=== PATIENT | male | born 1955 | race Caucasian/White ===

== ENCOUNTER 2020-02-07 09:10 | Outpatient (REF) | payer MEDICARE, SELFPAY ==
[2020-02-07 11:24] LABS: MANUAL DIFF FLAG NO
[2020-02-07 11:32] LABS: Glucose Urine UA NEG (NEG); Leukocyte Esterase Urine NEG (NEG); Nitrite Urine NEG (NEG); PH 5.5 (5.0-8.0); Specific Gravity - Urine 1.025 (1.005-1.025); Urine Blood NEG (NEG); Urine Ketones NEG (NEG); Urine Protein NEG (NEG-TRACE)
[2020-02-07 11:33] LABS: Appearance Urine CLEAR; Color Urine YELLOW
[2020-02-07 11:34] LABS: Estimated Average Glucose 103 mg/dL; Hemoglobin A1c % 5.2 %
[2020-02-07 11:52] LABS: Basophils Absolute Auto 0.1 X10*3/uL (0.0-0.2); Basophils Percent Auto 0.5 % (0-2); Creatinine Urine 62.06 mg/dL; Eosinophils Absolute Auto 0.1 X10*3/uL (0.0-0.4); Hematocrit 45.9 % (42-52); Hemoglobin 15.5 g/dl (14.0-18.0); Imm Gran Abs Auto 0.02 X10*3/uL (0.00-0.03); Imm Gran Pct Auto 0.2 % (0.0-0.4); Lymphocytes Absolute Auto 2.6 X10*3/uL (1.2-4.9); Lymphocytes Percent Auto 27.7 % (20-40); Mean Corpuscular HGB Conc 33.8 g/dl (31.0-36.0); Mean Corpuscular Hemoglobin 32.2 pg (27.0-33.0); Mean Corpuscular Volume 95.2 fL (80-98); Mean Platelet Volume 10.8 fL (9.4-12.4); Microalbum/Creatinine Ratio Ur 20.9 ug/mg cr; Monocytes Absolute Auto 0.7 X10*3/uL (0.1-1.2); Monocytes Percent Auto 7.9 % (2-11); Neutrophils Absolute Auto 5.9 X10*3/uL (2.0-8.3); Neutrophils Percent Auto 62.7 % (45-73); Platelet Count 263 X10*3/uL (160-400); Red Blood Count 4.82 X10*6/uL (4.60-5.80); Red Cell Distribution Width 12.8 % (11.0-16.0); White Blood Count 9.4 X10*3/uL (4.8-10.8)
[2020-02-07 12:21] LABS: Alanine Aminotransferase 22 U/L (0-40); Albumin Level 4.4 g/dL (3.5-5.0); Alkaline Phosphatase 70 U/L (39-117); Anion Gap 14 (12-20); Aspartate Amino Transferase 20 U/L (5-37); Bilirubin Total 0.8 mg/dL (0.0-1.0); Blood Urea Nitrogen 13 mg/dL (9-16); Calcium 9.6 mg/dL (8.4-10.2); Carbon Dioxide 26 mmol/L (22-29); Chloride 104 mmol/L (96-108); Cholesterol 229 mg/dL; Estimated Glomerular Filt Rate > 60; Glucose Fasting 92 mg/dL (60-99); HDL Cholesterol 83 mg/dL; LDL Cholesterol Calculated 131 mg/dl; Potassium 4.3 mmol/l (3.3-5.1); Sodium 140 mmol/L (135-145); Total Protein 7.2 g/dL (6.5-8.0); Triglycerides 78 mg/dL
[2020-02-07 12:52] LABS: Prostate Specific Antigen 5.54 ng/mL (<0.05-4.0)
== END 2020-02-07 09:11 | disposition home or self-care (01) ==
LOC: HO.HMGCLDS 09:10
PROVIDERS: PCP Internal Medicine; Visit Provider Internal Medicine
DX: E78.00 Pure hypercholesterolemia, unspecified (principal); R73.09 Other abnormal glucose; R97.20 Elevated prostate specific antigen [PSA]
CPT/HCPCS: 36415; 80053; 80061; 81003; 82043; 83036; 84153; 85025

== ENCOUNTER 2020-10-19 10:21 | Outpatient (REF) | payer MEDICARE, SELFPAY ==
[2020-10-19 10:50] LABS: Blood Urea Nitrogen 6 mg/dL (9-16); Estimated Glomerular Filt Rate > 60
== END 2020-10-19 10:22 | disposition home or self-care (01) ==
LOC: HO.LNP 10:21
PROVIDERS: Visit Provider Internal Medicine
DX: Z01.812 Encounter for preprocedural laboratory examination (principal)
CPT/HCPCS: 82565; 84520

== ENCOUNTER 2021-04-04 10:28 | Outpatient (REF) | payer MEDICARE, SELFPAY ==
[2021-04-04 10:33] LABS: MANUAL DIFF FLAG NO
[2021-04-04 11:00] LABS: Appearance Urine CLEAR; Basophils Absolute Auto 0.1 X10*3/uL (0.0-0.2); Basophils Percent Auto 0.6 % (0-2); Color Urine STRAW; Eosinophils Absolute Auto 0.1 X10*3/uL (0.0-0.4); Eosinophils Percent Auto 0.7 % (0-4); Glucose Urine UA NEG (NEG); Imm Gran Abs Auto 0.01 X10*3/uL (0.00-0.03); Imm Gran Pct Auto 0.1 % (0.0-0.4); Leukocyte Esterase Urine NEG (NEG); Lymphocytes Absolute Auto 2.3 X10*3/uL (1.2-4.9); Lymphocytes Percent Auto 27.1 % (20-40); Mean Corpuscular Hemoglobin 31.7 pg (27.0-33.0); Mean Corpuscular Volume 93.3 fL (80.0-98.0); Mean Platelet Volume 10.9 fL (9.4-12.4); Monocytes Absolute Auto 0.6 X10*3/uL (0.1-1.2); Monocytes Percent Auto 7.6 % (2-11); Neutrophils Absolute Auto 5.3 x10*3/uL (2.0-8.3); Neutrophils Percent Auto 63.9 % (45-73); Nitrite Urine NEG (NEG); PH 5.5 (5.0-8.0); Platelet Count 289 X10*3/uL (160-400); Red Blood Count 5.04 X10*6/uL (4.60-5.80); Red Cell Distribution Width 13.4 % (11.0-16.0); Urine Blood NEG (NEG); Urine Ketones NEG (NEG); Urine Protein NEG (NEG-TRACE); White Blood Count 8.3 X10*3/uL (4.8-10.8)
[2021-04-04 11:07] LABS: Estimated Average Glucose 105 mg/dL; Hemoglobin A1c % 5.3 %
[2021-04-04 11:16] LABS: Alanine Aminotransferase 24 U/L (0-40); Albumin Level 4.2 g/dL (3.5-5.0); Alkaline Phosphatase 68 U/L (39-117); Anion Gap 13 (12-20); Aspartate Amino Transferase 19 U/L (5-37); Bilirubin Total 0.6 mg/dL (0.0-1.0); Blood Urea Nitrogen 7 mg/dL (9-16); Carbon Dioxide 26 mmol/L (22-29); Chloride 104 mmol/L (96-108); Cholesterol 211 mg/dL; Estimated Glomerular Filt Rate > 60; Glucose Fasting 102 mg/dL (60-99); HDL Cholesterol 74 mg/dL; LDL Cholesterol Calculated 124 mg/dl; Potassium 4.6 mmol/L (3.3-5.1); Sodium 138 mmol/L (135-145); Total Protein 7.3 g/dL (6.5-8.0); Triglycerides 68 mg/dL
[2021-04-04 11:41] LABS: Creatinine Urine 51.39 mg/dL; Microalbum/Creatinine Ratio Ur 17.5 ug/mg cr; PSA,Total (Free>4and<10) 7.24 ng/mL (0.00-4.00)
[2021-04-04 12:58] LABS: Reflex LDLD? No
[2021-04-05 12:21] LABS: Free Prostate Spec Ag 1.2 ng/mL; Percent Free Prostate Spec Ag 19 % (calc) (>25); Prostate Specific Ag Total 6.4 ng/mL (< OR = 4.0)
== END 2021-04-04 10:29 | disposition home or self-care (01) ==
LOC: HO.LNP 10:28
PROVIDERS: Visit Provider Internal Medicine
DX: Z00.00 Encounter for general adult medical examination without abnormal findings (principal); R73.09 Other abnormal glucose; E78.00 Pure hypercholesterolemia, unspecified; R97.20 Elevated prostate specific antigen [PSA]
CPT/HCPCS: 80053; 80061; 81003; 82043; 83036; 84153; 84154; 85025

== ENCOUNTER 2022-04-07 10:55 | Outpatient (REF) | payer MEDICARE, SELFPAY ==
[2022-04-07 10:59] LABS: MANUAL DIFF FLAG NO
[2022-04-07 11:16] LABS: Basophils Absolute Auto 0.1 X10*3/uL (0.0-0.2); Basophils Percent Auto 0.8 % (0-2); Eosinophils Absolute Auto 0.1 X10*3/uL (0.0-0.4); Eosinophils Percent Auto 1.4 % (0-4); Hematocrit 51.8 % (42.0-52.0); Imm Gran Abs Auto 0.02 X10*3/uL (0.00-0.03); Imm Gran Pct Auto 0.2 % (0.0-0.4); Lymphocytes Absolute Auto 2.7 X10*3/uL (1.2-4.9); Mean Corpuscular HGB Conc 32.8 g/dl (31.0-36.0); Mean Corpuscular Hemoglobin 30.6 pg (27.0-33.0); Mean Corpuscular Volume 93.3 fL (80.0-98.0); Mean Platelet Volume 10.6 fL (9.4-12.4); Monocytes Absolute Auto 0.8 X10*3/uL (0.1-1.2); Monocytes Percent Auto 9.6 % (2-11); Neutrophils Absolute Auto 4.8 x10*3/uL (2.0-8.3); Platelet Count 285 X10*3/uL (160-400); Red Blood Count 5.55 X10*6/uL (4.60-5.80); Red Cell Distribution Width 13.4 % (11.0-16.0); White Blood Count 8.6 X10*3/uL (4.8-10.8)
[2022-04-07 11:31] LABS: Estimated Average Glucose 114 mg/dL; Hemoglobin A1c % 5.6 %
[2022-04-07 11:34] LABS: Alanine Aminotransferase 27 U/L (0-40); Albumin Level 4.4 g/dL (3.5-5.0); Alkaline Phosphatase 82 U/L (39-117); Anion Gap 15 (12-20); Aspartate Amino Transferase 22 U/L (5-37); Bilirubin Total 0.9 mg/dL (0.0-1.0); Blood Urea Nitrogen 10 mg/dL (9-16); Calcium 10.2 mg/dL (8.4-10.2); Carbon Dioxide 26 mmol/L (22-29); Chloride 102 mmol/L (96-108); Cholesterol 218 mg/dL; Estimated Glomerular Filt Rate > 60; Glucose Fasting 106 mg/dL (60-99); HDL Cholesterol 72 mg/dL; LDL Cholesterol Calculated 127 mg/dl; Potassium 5.1 mmol/L (3.3-5.1); Sodium 138 mmol/L (135-145); Total Protein 7.6 g/dL (6.5-8.0); Triglycerides 96 mg/dL
[2022-04-07 12:04] LABS: PSA,Total (Free>4and<10) 7.05 ng/mL (0.00-4.00)
[2022-04-08 09:59] LABS: Free Prostate Spec Ag 1.1 ng/mL; Percent Free Prostate Spec Ag 17 % (calc) (>25); Prostate Specific Ag Total 6.3 ng/mL (< OR = 4.0)
== END 2022-04-07 10:56 | disposition home or self-care (01) ==
LOC: HO.LNP 10:55
PROVIDERS: Visit Provider Internal Medicine
DX: Z00.00 Encounter for general adult medical examination without abnormal findings (principal); Z12.5 Encounter for screening for malignant neoplasm of prostate; R73.03 Prediabetes; E78.00 Pure hypercholesterolemia, unspecified; R97.20 Elevated prostate specific antigen [PSA]
CPT/HCPCS: 80053; 80061; 83036; 84153; 84154; 85025

== ENCOUNTER 2022-09-05 10:50 | Outpatient (REF) | payer MEDICARE, SELFPAY ==
[2022-09-05 11:06] LABS: Estimated Average Glucose 111 mg/dL; Hemoglobin A1c % 5.5 %
[2022-09-05 11:33] LABS: Alanine Aminotransferase 19 U/L (0-40); Albumin Level 3.9 g/dL (3.5-5.0); Alkaline Phosphatase 98 U/L (39-117); Aspartate Amino Transferase 19 U/L (5-37); Bilirubin Direct 0.2 mg/dL (0.0-0.5); Bilirubin Total 0.6 mg/dL (0.0-1.0); Cholesterol 128 mg/dL; Glucose Fasting 116 mg/dL (60-99); HDL Cholesterol 59 mg/dL; LDL Cholesterol Calculated 58 mg/dl; Triglycerides 56 mg/dL
[2022-09-05 12:42] LABS: Reflex LDLD? No
== END 2022-09-05 10:51 | disposition home or self-care (01) ==
LOC: HO.LNP 10:50
PROVIDERS: Visit Provider Internal Medicine
DX: E78.00 Pure hypercholesterolemia, unspecified (principal); R73.03 Prediabetes
CPT/HCPCS: 80061; 80076; 82947; 83036

== ENCOUNTER 2023-04-20 11:08 | Outpatient (REF) | payer MEDICARE, SELFPAY ==
[2023-04-20 11:15] LABS: MANUAL DIFF FLAG NO
[2023-04-20 12:20] LABS: Basophils Absolute Auto 0.1 X10*3/uL (0.0-0.2); Basophils Percent Auto 0.7 % (0-2); Eosinophils Absolute Auto 0.1 X10*3/uL (0.0-0.4); Eosinophils Percent Auto 1.4 % (0-4); Hematocrit 47.3 % (42.0-52.0); Hemoglobin 15.8 g/dl (14.0-18.0); Imm Gran Abs Auto 0.05 X10*3/uL (0.00-0.03); Imm Gran Pct Auto 0.5 % (0.0-0.4); Lymphocytes Absolute Auto 2.9 X10*3/uL (1.2-4.9); Lymphocytes Percent Auto 31.8 % (20-40); Mean Corpuscular HGB Conc 33.4 g/dl (31.0-36.0); Mean Corpuscular Hemoglobin 30.8 pg (27.0-33.0); Mean Corpuscular Volume 92.2 fL (80.0-98.0); Mean Platelet Volume 10.7 fL (9.4-12.4); Monocytes Absolute Auto 0.9 X10*3/uL (0.1-1.2); Monocytes Percent Auto 9.6 % (2-11); Neutrophils Absolute Auto 5.1 x10*3/uL (2.0-8.3); Platelet Count 302 X10*3/uL (160-400); Red Blood Count 5.13 X10*6/uL (4.60-5.80); Red Cell Distribution Width 13.3 % (11.0-16.0); White Blood Count 9.1 X10*3/uL (4.8-10.8)
[2023-04-20 12:29] LABS: Appearance Urine Clear; Color Urine Yellow; Glucose Urine UA Negative (Negative); Leukocyte Esterase Urine Negative (Negative); Nitrite Urine Negative (Negative); Urine Blood Negative (Negative); Urine Ketones Negative (Negative); Urine Protein Negative (Neg-Trace)
[2023-04-20 12:35] LABS: Bacteria Urine None Seen (None Seen); Estimated Average Glucose 114 mg/dL; Hemoglobin A1c % 5.6 % (<6.0); Hyaline Casts Urine 0-2 /LPF (0-2); RBC Urine 0-2 /HPF (0-2); Squamous Epithelial Cell Urine 0-2 /HPF (0-2); WBC Urine 0-5 /HPF (0-5)
[2023-04-20 12:55] LABS: Alanine Aminotransferase 30 U/L (0-40); Albumin Level 4.3 g/dL (3.5-5.0); Alkaline Phosphatase 84 U/L (39-117); Anion Gap 15 (12-20); Aspartate Amino Transferase 23 U/L (5-37); Bilirubin Total 0.6 mg/dL (0.0-1.0); Blood Urea Nitrogen 18 mg/dL (9-16); Calcium 9.9 mg/dL (8.4-10.2); Carbon Dioxide 27 mmol/L (22-29); Chloride 101 mmol/L (96-108); Cholesterol 159 mg/dL (<200); Estimated Glomerular Filt Rate > 60; Glucose Fasting 107 mg/dL (60-99); HDL Cholesterol 67 mg/dL (>40); LDL Cholesterol Calculated 73 mg/dL (<100); Sodium 138 mmol/L (135-145); Total Protein 7.7 g/dL (6.5-8.0); Triglycerides 95 mg/dL (<150)
[2023-04-20 13:04] LABS: Creatinine Urine 75.95 mg/dL; Microalbum/Creatinine Ratio Ur 9.2 ug/mg cr (<30)
[2023-04-22 12:53] LABS: Free Prostate Spec Ag 0.9 ng/mL; Percent Free Prostate Spec Ag 16 % (calc) (>25); Prostate Specific Ag Total 5.5 ng/mL (< OR = 4.0)
== END 2023-04-20 11:09 | disposition home or self-care (01) ==
LOC: HO.LNP 11:08
PROVIDERS: Visit Provider Internal Medicine
DX: Z00.00 Encounter for general adult medical examination without abnormal findings (principal); Z12.5 Encounter for screening for malignant neoplasm of prostate; R73.03 Prediabetes; E78.00 Pure hypercholesterolemia, unspecified; I10 Essential (primary) hypertension
CPT/HCPCS: 80053; 80061; 81001; 82043; 82570; 83036; 84153; 84154; 85025

== ENCOUNTER 2023-10-26 10:40 | Outpatient (REF) | payer MEDICARE, SELFPAY ==
[2023-10-26 11:54] LABS: Estimated Average Glucose 114 mg/dL; Hemoglobin A1C 149.9033 umol/L; Hemoglobin A1c % 5.6 % (<6.0)
[2023-10-26 12:16] LABS: Alanine Aminotransferase 35 U/L (0-40); Albumin Level 4.2 g/dL (3.5-5.0); Alkaline Phosphatase 92 U/L (39-117); Aspartate Amino Transferase 26 U/L (5-37); Bilirubin Direct 0.3 mg/dL (0.0-0.5); Bilirubin Total 0.6 mg/dL (0.0-1.0); Cholesterol 136 mg/dL (<200); Glucose Fasting 105 mg/dL (60-99); HDL Cholesterol 62 mg/dL (>40); LDL Cholesterol Calculated 56 mg/dL (<100); Total Protein 7.2 g/dL (6.5-8.0); Triglycerides 93 mg/dL (<150)
[2023-10-26 12:25] LABS: Reflex LDLD? No
== END 2023-10-26 10:41 | disposition home or self-care (01) ==
LOC: HO.LNP 10:40
PROVIDERS: Visit Provider Internal Medicine
DX: R73.09 Other abnormal glucose (principal); E78.00 Pure hypercholesterolemia, unspecified
CPT/HCPCS: 80061; 80076; 82947; 83036

== ENCOUNTER 2024-04-22 10:51 | Outpatient (REF) | payer MEDICARE, SELFPAY ==
[2024-04-22 10:56] LABS: MANUAL DIFF FLAG NO
[2024-04-22 11:19] LABS: Appearance Urine Clear; Color Urine Yellow; Glucose Urine UA Negative (Negative); Leukocyte Esterase Urine Negative (Negative); Nitrite Urine Negative (Negative); PH 5.5 (5.0-9.0); Urine Blood Negative (Negative); Urine Ketones Negative (Negative); Urine Protein Negative (Neg-Trace)
[2024-04-22 11:24] LABS: Bacteria Urine None Seen (None Seen); Basophils Absolute Auto 0.1 X10*3/uL (0.0-0.2); Basophils Percent Auto 0.9 % (0-2); Eosinophils Absolute Auto 0.1 X10*3/uL (0.0-0.4); Eosinophils Percent Auto 1.5 % (0-4); Hemoglobin 16.5 g/dl (14.0-18.0); Hyaline Casts Urine 0-2 /LPF (0-2); Imm Gran Abs Auto 0.03 X10*3/uL (0.00-0.03); Imm Gran Pct Auto 0.4 % (0.0-0.4); Lymphocytes Percent Auto 36.7 % (20-40); Mean Corpuscular Volume 93.8 fL (80.0-98.0); Mean Platelet Volume 10.8 fL (9.4-12.4); Monocytes Absolute Auto 0.8 X10*3/uL (0.1-1.2); Monocytes Percent Auto 10.4 % (2-11); Neutrophils Absolute Auto 4.1 x10*3/uL (2.0-8.3); Neutrophils Percent Auto 50.1 % (45-73); Platelet Count 324 X10*3/uL (160-400); RBC Urine 0-2 /HPF (0-2); Red Blood Count 5.33 X10*6/uL (4.60-5.80); Red Cell Distribution Width 13.2 % (11.0-16.0); Squamous Epithelial Cell Urine 0-2 /HPF (0-2); WBC Urine 0-5 /HPF (0-5); White Blood Count 8.1 X10*3/uL (4.8-10.8)
[2024-04-22 11:40] LABS: Cholesterol 137 mg/dL (<200); HDL Cholesterol 65 mg/dL (>40); LDL Cholesterol Calculated 53 mg/dL (<100); Triglycerides 95 mg/dL (<150)
[2024-04-22 12:00] LABS: Estimated Average Glucose 120 mg/dL; Hemoglobin A1C 168.2052 umol/L; Hemoglobin A1c % 5.8 % (<6.0); Total Hemoglobin (HGBA1C) 4235.4732 umol/L
[2024-04-22 12:06] LABS: PSA,Total (Free>4and<10) 5.87 ng/mL (0.00-4.00)
[2024-04-22 12:37] LABS: Creatinine Urine 71.17 mg/dL; Microalbum/Creatinine Ratio Ur 32.3 ug/mg cr (<30)
--- OUTSIDE RECORDS SUMMARY | 2024-04-22 12:48 | XMS_ITS ---
Author Organization Berto Jessica MD Address [address] [place] [phone] Care Team Providers Care Exercise Rider Name Role Phone Berto Jesscia Primary Care Provider REASON FOR VISIT refill Medications Medication SIG (Take, Route, Frequency, Duration) Notes Start Date End Date Status Atorvastatin Calcium 40 MG TAKE 1 TABLET BY MOUTH EVERY DAY FOR 90 DAYS Orally Once a day for 90 days Active Eliquis 5 MG TAKE 1 TABLET BY MEAGAN TH TWICE A DAY FOR 30 DAYS Orally twice a day for 30 days Active Encounters Encounter Location Date Provider Diagnosis Berto Jessica MD [address] [place] [phone] 04/19/2024 Berto Jessica Pure hypercholestero lemia E78.00 and Atrial fibrillation, unspecified type I48.91 Assessments Encounter Date Diagnosis (ICD Code) Assessment Notes Treatment Notes Treatment Clinical Notes Section Notes 04/19/2024 Pure hypercholesterolemia (ICD-10 - E78.00) 04/19/2024 Atrial fibrillation, unspecified type (ICD-10 - I48.91) Plan Of Treatment Medication Medication Name Sig Start Date Stop Date Notes Atorvastatin Calcium 40 MG TAKE 1 TABLET BY MOUTH EVERY DAY FOR 90 DAYS Orally Once a day for 90 days Eliquis 5 MG TAKE 1 TABLET BY MEAGAN TH TWICE A DAY FOR 30 DAYS Orally twice a day for 30 days Next Appt Details Provider Name:Berto Palacios Jerodianna toan, 04/29/2024 08:00:00 AM, [address] [place] [address], [address], [place], [place], [phone], Progress Notes * Nader MATADOB:[birth year] (69 yo M)Acc No.[id number]:04/19/2024 Patient:?Nader Mata :1955???Age:69 Y???Sex:Male Address:[address] [place] [address], [place] [address] * Refills? Refill Atorvastatin Calcium Tablet, 40 MG, Orally, 90, TAKE 1 TABLET BY MOUTH EVERY DAY FOR 90 DAYS, Once a day, 90 days, Refills=3 Refill Eliquis Tablet, 5 MG, Orally, 60, TAKE 1 TABLET BY MOUTH TWICE A DAY FOR 30 DAYS, twice a day, 30 days, Refills=3 * true * Date:? Generated for Maximino cantu/Venkat/Noemiitting on:?04/22/2024 12:48 PM EST
--- OUTSIDE RECORDS SUMMARY | 2024-04-22 12:48 | XMS_ITS ---
Author Organization Berto Jessica MD Address [address] [place], [place] [phone] Care Team Providers Care Neonatal Intensive Care Unit Nurse Name Role Phone Berto Jessica Primary Care Provider Allergies No Known Allergies REASON FOR VISIT 6 MO F/U Medications Medication SIG (Take, Route, Frequency, Duration) Notes Start Date End Date Status Valsartan 160 MG TAKE 1 TABLET BY MEAGAN TH EVERY DAY FOR 90 DAYS Active Eliquis 5 MG TAKE 1 TABLET BY MEAGAN TH TWICE A DAY FOR 30 DAYS Active Atorvastatin Calcium 40 MG TAKE 1 TABLET BY MOUTH EVERY DAY FOR 90 DAYS Active Vital Signs Blood pressure systolic 174 mm Hg 10/29/19 24 Blood pressure diastolic 90 mm Hg 024 Height 73 in 10/29/2023 Weight 208 lbs 10/29/2023 BMI 27.44 kg/m2 10/29/2023 weight is up 6 pounds since 04-27-23 Encounters Encounter Location Date Provider Diagnosis Berto Jessica MD [address] [place], [place] [phone] 10/29/2023 Breto Jessica Atrial fibrillation, unspecified type I48.91 ; Pure hypercholesterolemia E78.00 ; Elevated PSA R97.20 ; Smoker unmotivated to quit F17.210 and Essential hypertension I10 Assessments Encounter Date Diagnosis (ICD Code) Assessment Notes Treatment Notes Treatment Clinical Notes Section Notes 10/29/2023 Atrial fibrillation, unspecified type (ICD-10 - I48.91) stable for many years, will continue current regiment 10/29/2023 Pure hypercholesterolemia (ICD-10 - E78.00) well controlled, will continue current regiment 10/29/2023 Elevated PSA (ICD-10 - R97.20) followed by urology 10/29/2023 Smoker unmotivated t o quit (ICD-10 - F17.210) 10/29/2023 Essential hypertensi on (ICD-10 - I10) stable, will continue current regiment Plan Of Treatment Medication Medication Name Sig Start Date Stop Date Notes Valsartan 160 MG TAKE 1 TABLET BY MEAGAN TH EVERY DAY FOR 90 DAYS Eliquis 5 MG TAKE 1 TABLET BY MEAGAN TH TWICE A DAY FOR 30 DAYS Atorvastatin Calcium 40 MG TAKE 1 TABLET BY MOUTH EVERY DAY FOR 90 DAYS Treatment Notes Assessment Notes Atrial fibrillation, unspecified type st able for many years, will continue current regiment Pure hypercholesterolemia well controlle d, will continue current regiment Elevated PSA followed by urology Essential hypertension stable, will cont inue current regiment Next Appt Details Provider Name:Berto joya, 04/29/2024 08:00:00 AM, [address] [place] [address], [place] [address], [place], [place], [phone], Progress Notes * Nader MATADOB:[birth year] (68 yo M)Acc No.[id number]:10/29/2023 Progress Notes Patient:?Nader Mata Provider:?Berto Jessica MD :1955???Age:68 Y???Sex:Male Colin e:10/29/2023 Address:[address] [place] [address] [place], [place], [id number] Subjective: * Chief Complaints: * ???6 MO F/U * HPI: ???Symptom(s):? patient is a 68 yo male here for 6 month follow up visit. has been doing well. no heart problems. * ROS:?General/Constitutional:?Denies?Chills.?Denies?Fatigue.?Denies?Fever.?Denies?Headache.?ENT:?Patient denies?decreased sense of smell , any loss of taste , sore throat.?Denies?Sore throat.?Respiratory:?Denies?Cough.?Denies?Shortness of breath at rest.?Denies?Shortness of breath with exertion.?Cardiovascular:?Denies?Chest pain at rest.?Denies?Chest pain with exertion.?Denies?Dizziness.?Denies?Palpitations.?Denies?Shortness of breath.?Gastrointestinal:?Denies?Diarrhea.?Denies?Nausea.?Musculoskeletal:?Patient denies?muscle aches.?Peripheral Vascular:?Patient denies?red and blue toes.? * Medical History:? * Surgical History:? * Hospitalization/Major Diagno stic Procedure:? * Medications:?TakingAtorvasta tin Calcium 40 MG Tablet TAKE 1 TABLET BY MOUTH EVERY DAY FOR 90 DAYS Eliquis 5 MG Tablet TAKE 1 TABLET BY MOUTH TWICE A DAY FOR 30 DAYS Valsartan 160 MG Tablet TAKE 1 TABLET BY MOUTH EVERY DAY FOR 90 DAYS Medication List reviewed and reconciled with the patientTaking Atorvastatin Calcium 40 MG Tablet TAKE 1 TABLET BY MOUTH EVERY DAY FOR 90 DAYS Taking Eliquis 5 MG Tablet TAKE 1 TABLET BY MOUTH TWICE A DAY FOR 30 DAYS Taking Valsartan 160 MG Tablet TAKE 1 TABLET BY MOUTH EVERY DAY FOR 90 DAYS Medication List reviewed and reconciled with the patient * Allergies:?N.K.D.A.yes[Aller gies Verified] Objective: * Vitals:?Ht: 73, Wt:208, BMI: 27.44, BP:174/90, Repeat BP:120/78 weight is up 6 pounds since 04-27-23. * ???Past Orders: ???Lab:Liver Panel (Order Da te 10/26/2023) (Collection Date 10/26/2023) ? Value Reference Range ?Bilirubin Total 0.6 0.0- 1.0 - mg/dL ?Bilirubin Direct 0.3 0.0 -0.5 - mg/dL ?Aspartate Amino Transferase 26 5-37 - U/L ?Alanine Aminotransferase 35 0-40 - U/L ?Total Protein 7.2 6.5-8. 0 - g/dL ?Albumin Level 4.2 3.5-5. 0 - g/dL ?Alkaline Phosphatase 92 39-117 - U/L ???Lab:Glucose Fasting (Orde r 10/26/2023) (Collection 10/26/2023) ? Value Reference Range ?Glucose Fasting 105 H 60-9 9 - mg/dL ???Lab:Lipid Panel with Refl ex (Order 10/26/2023) (Collection 10/26/2023) ? Value Reference Range ?Triglycerides 93 <150 - mg/dL ?Cholesterol 136 <200 - m g/dL ?LDL Cholesterol Calculated 56 <100 - mg/dL ?HDL Cholesterol 62 >40 - mg/dL ???Lab:Hemoglobin A1c (Order 10/26/2023) (Collection Date - 10/26/2023) ? Value Reference Range ?Hemoglobin A1c % 5.6 <6. 0 - % ?Estimated Average Glucose 114 - mg/dL * Examination: ???General Examination: ?GENERAL APPEARANCE:? alert, well hydrated, in no distress , male.?HEAD:? normocephalic.?SKIN:? good turgor.?HEART:? no murmurs, rubs, gallops, regular rate and rhythm.?LUNGS:? no wheezes, rales, rhonchi, good air movement, clear to auscultation bilaterally.?EXTREMITIES:? no edema.? Assessment: * Assessment: 1.?Atrial fibrillation, unsp ecified type - I48.91 (Primary)?2.?Pure hypercholesterolemia - E78.00?3.?Elevated PSA - R97.20?4.?Smoker unmotivated to quit - F17.210?5.?Essential hypertension - I10? Plan: * Treatment: 2.?Pure hypercholesterolemia ? Continue Atorvastatin Calcium Tablet, 40 MG, TAKE 1 TABLET BY MOUTH EVERY DAY FOR 90 DAYS.?? Notes: well controlled, will continue current regiment.?? 3.?Elevated PSA? Notes: followed by urology.?? 4.?Essential hypertension? Continue Valsartan Tablet, 160 MG, TAKE 1 TABLET BY MOUTH EVERY DAY FOR 90 DAYS.?? Notes: stable, will continue current regiment.?? * Procedure Codes:? * Preventive Medicine:? ??Counseling:?Smoking?Patient counseled on the dangers of tobacco use and urged to quit.?10/29/2023,?Patient Lifestyle Goals?Patient does not want to quit,?Treatment Goals?suggested patient consider cutting down by 1 cigarette per week,?Self- Managment Goals?Suggested patient speak with family/friends about quitting and how they can help,?Barriers?Does not want to quit,?Set a Quit Date?not ready to quit.? * * Sign off status: Completed true * Provider:?Berto Jessica MD Date:?0 10/29/2023 Generated for Maximino cantu/Venkat/María on:?04/22/2024 12:48 PM EST History and Physical Notes * HPI (History of Present Illness) Category Sub-Category Detail Notes Category Not es Symptom(s) patient is a 68 yo male here for 6 month follow up visit. has been doing well. no heart problems Examination Category Sub-Category Detail Notes Category Not es General Examination GENERAL APPEARANCE: alert, w ell hydrated, in no distress , male HEAD: normocephalic HEART: no murmurs, rubs, ga llops, regular rate and rhythm LUNGS: no wheezes, rales, r honchi, good air movement, clear to auscultation bilaterally SKIN: good turgor EXTREMITIES: no edema
--- OUTSIDE RECORDS SUMMARY | 2024-04-22 12:48 | XMS_ITS | Patient Health Record ---
Author Organization Berto Jessica MD Address [address] [place], [place] [phone] Care Team Providers Care Ict Sales Assistant Name Role Phone Berto Jessica Primary Care Provider Allergies No Known Allergies Results Component Value Reference Range Notes Liver Panel Reviewed date:10/26/2023 12:47:39 PM Interpretation: Performing Lab:[facility], [address] [place] [address] Notes/Report: Bilirubin Total 0.6 0.0-1.0 mg/dL Bilirubin Direct 0.3 0.0-0.5 mg/dL Aspartate Amino Transferase 26 5-37 U/L Alanine Aminotransferase 35 0-40 U/L Total Protein 7.2 6.5-8.0 g/dL Albumin Level 4.2 3.5-5.0 g/dL Alkaline Phosphatase 92 39-117 U/L Glucose Fasting Reviewed date:10/26/2023 12:44:36 PM Interpretation: Performing Lab:[facility], [address] [place] [address] Notes/Report: Glucose Fasting 105 60-99 mg/dL A fasting glucose from 100-125 mg/dl is considered impaired (pre-diabetes). Lipid Panel with Reflex Reviewed date:10/26/2023 02:52:05 PM Interpretation: Performing Lab:[address] [phone] Notes/Report: Triglycerides 93 <150 mg/dL Desirable Triglyceride: less than 150 mg/dL Borderline High Triglyceride 150-199 mg/dL High Triglyceride: 200-499 mg/dL Very High Triglyceride: greater than or equal to 5OO mg/dL Cholesterol 136 <200 mg/dL Desirable Cholesterol: less than 200 mg/dL Borderline High Cholesterol: 200-239 mg/dL High Cholesterol: greater than 239 mg/dL LDL Cholesterol Calculated 56 <100 mg/dL Desirable LDL: less than 100 mg/dL Near Optimal/Above Optimal LDL: 110-129 mg/dL Borderline High LDL: 130-159 mg/dL High LDL: 160-189 mg/dL Very High LDL: greater than or equal to 190 mg/dL HDL Cholesterol 62 >40 mg/dL Desirable HDL: greater than 40 mg/dL Note: This HDL assay may give artificially low results in patients with liver disease. Hemoglobin A1c Reviewed date:10/26/2023 12:12:43 PM Interpretation: Performing Lab:[address] [phone] Notes/Report: Hemoglobin A1c % 5.6 <6.0 % Hemoglobin A1C Reference Range Adults: 4.8 - 6.0 % Non diabetic: < 6.0 % Goal: < 7.0 % Additional Action Suggested: > 8.0 % Note: Hemoglobin A1c results are invalid for patients with abnormal amounts of HbF. Blood transfusions may impact the HbA1c concentration in the patient sample. Estimated Average Glucose 114 eAG = Estimated average glucose which is %A1C expressed as average glucose, using the formula of the L9S-Rrxttgo Average Glucose study (ADAG), Diabetes Care, Vol.31,#8, 2007 Complete Blood Count Auto Di ff (Not yet reviewed by provider) Interpretation: Performing Lab:[facility], [address] [place] [phone] Notes/Report: White Blood Count 8.1 4.8-10.8 X10*3/uL Red Blood Count 5.33 4.60-5.80 X10*6/uL Hemoglobin 16.5 14.0-18.0 g/dl Hematocrit 50.0 42.0-52.0 % Mean Corpuscular Volume 93.8 80.0-98.0 fL Mean Corpuscular Hemoglobin 31.0 27.0-33.0 pg Mean Corpuscular HGB Conc 33.0 31.0-36.0 g/dl Red Cell Distribution Width 13.2 11.0-16.0 % Platelet Count 324 160-400 X10*3/uL Mean Platelet Volume 10.8 9.4-12.4 fL Neutrophils Percent Auto 50.1 45-73 % Imm Gran Pct Auto 0.4 0.0-0.4 % Lymphocytes Percent Auto 36.7 20-40 % Monocytes Percent Auto 10.4 2-11 % Eosinophils Percent Auto 1.5 0-4 % Basophils Percent Auto 0.9 0-2 % NRBC Pct Auto 0.0 0.0-0.2 /100WBC Neutrophils Absolute Auto 4.1 2.0-8.3 x10*3/u L Imm Gran Abs Auto 0.03 0.00-0.03 X10*3/uL Lymphocytes Absolute Auto 3.0 1.2-4.9 X10*3/u L Monocytes Absolute Auto 0.8 0.1-1.2 X10*3/uL Eosinophils Absolute Auto 0.1 0.0-0.4 X10*3/u L Basophils Absolute Auto 0.1 0.0-0.2 X10*3/uL NRBC Abs Auto 0.000 0.0-0.012 X10*3/uL Lipid Panel (Not yet reviewe d by provider) Interpretation: Performing Lab:[facility], [address] [place] [phone] Notes/Report: Triglycerides 95 <150 mg/dL Desirable Triglyceride: less than 150 mg/dL Borderline High Triglyceride 150-199 mg/dL High Triglyceride: 200-499 mg/dL Very High Triglyceride: greater than or equal to 5OO mg/dL Cholesterol 137 <200 mg/dL Desirable Cholesterol: less than 200 mg/dL Borderline High Cholesterol: 200-239 mg/dL High Cholesterol: greater than 239 mg/dL LDL Cholesterol Calculated 53 <100 mg/dL Desirable LDL: less than 100 mg/dL Near Optimal/Above Optimal LDL: 110-129 mg/dL Borderline High LDL: 130-159 mg/dL High LDL: 160-189 mg/dL Very High LDL: greater than or equal to 190 mg/dL HDL Cholesterol 65 >40 mg/dL Desirable HDL: greater than 40 mg/dL Note: This HDL assay may give artificially low results in patients with liver disease. PSA,Total (Free>4and<10) (No t yet reviewed by provider) Interpretation: Performing Lab:[address] [address] Notes/Report: PSA,Total (Free>4and<10) 5.87 0.00-4.00 ng/mL PSA methodology: De La Garza Alinity i Chemiluminescent Microparticle Immunoassay (CMIA) Microalbumin, Random (Not ye t reviewed by provider) Interpretation: Performing Lab:[address] [address] Notes/Report: Creatinine Urine 71.17 Microalbumin Urine 23.0 Microalbum/Creatinine Ratio Ur 32.3 <30 ug/mg cr Albumin/Creatinine Ratio Reference Ranges: Normal: < 30 ug/mg creatinine Microalbuminuria: 30 - 300 ug/mg creatinine Clinical Albuminuria: > 300 ug/mg creatinine Hemoglobin A1c (Not yet revi ewed by provider) Interpretation: Performing Lab:[address] [address] Notes/Report: Hemoglobin A1c % 5.8 <6.0 % Hemoglobin A1C Reference Range Adults: 4.8 - 6.0 % Non diabetic: < 6.0 % Goal: < 7.0 % Additional Action Suggested: > 8.0 % Note: Hemoglobin A1c results are invalid for patients with abnormal amounts of HbF. Blood transfusions may impact the HbA1c concentration in the patient sample. Estimated Average Glucose 120 eAG = Estimated average glucose which is %A1C expressed as average glucose, using the formula of the S5T-Amvlvnt Average Glucose study (ADAG), Diabetes Care, Vol.31,#8, 2007 UA ClnCatch+Micro w/rflx Cul t (Not yet reviewed by provider) Interpretation: Performing Lab:[address] [address] Notes/Report: Urine, Clean Catch Color Urine Yellow Appearance Urine Clear PH 5.5 5.0-9.0 Glucose Urine UA Negative Negative mg/dL Urine Blood Negative Negative Specific [place] - Urine 1.010 1.005-1.025 Urine Protein Negative Neg-Trace mg/dL Urine Ketones Negative Negative mg/dL Nitrite Urine Negative Negative Leukocyte Esterase Urine Negative Negative RBC Urine 0-2 0-2 /HPF WBC Urine 0-5 0-5 /HPF Squamous Epithelial Cell Urine 0-2 0-2 /HPF Bacteria Urine None Seen None Seen Hyaline Casts Urine 0-2 0-2 /LPF Magda Bishop Reviewed date:10/26/2023 12:14:42 PM Interpretation: Performing Lab:[facility], [address] [place] [phone] Notes/Report: Magda Bishop See Note Specimen held untested for 24 hours; Call to request Chemistry testing. Magda Bishop Reviewed date:10/26/2023 12:14:17 PM Interpretation: Performing Lab:[facility], [address] [place] [phone] Notes/Report: Magda Bishop See Note Specimen held untested for 24 hours; Call to request Chemistry testing. Reason For Referral No Information Medications Medication SIG (Take, Route, Frequency, Duration) Notes Start Date End Date Status Valsartan 160 MG TAKE 1 TABLET BY MEAGAN TH EVERY DAY FOR 90 DAYS Active Atorvastatin Calcium 40 MG TAKE 1 TABLET BY MOUTH EVERY DAY FOR 90 DAYS Orally Once a day for 90 days Active Eliquis 5 MG TAKE 1 TABLET BY MEAGAN TH TWICE A DAY for 30 Active Immunizations Vaccine Route Administration Date Status Comme nts Fluarix Quadrivalent IM Intramuscular 02/17/2020 Administe red PPSV23 (Pnemovax) IM Intramuscular 03/01/2020 Administered SARS-COV-2 Moderna Unknown 07/26/2020 Administered SARS-COV-2 Moderna Unknown 08/23/2020 Administered Influenza High Dose IM Intramuscular 04/04/2021 Administer ed SARS-COV-2 Moderna Unknown 03/13/2021 Administered Flu Vaccine Unknown 05/09/2014 Refused Flu Vaccine Unknown 05/04/2015 Refused Fluarix Quadrivalent Unknown 12/24/2015 Refused TDaP Unknown 09/17/2018 Refused Shingrix Unknown 09/17/2018 Refused Fluarix Quadrivalent Unknown 02/14/2020 Refused Social History Tobacco Use: Social History Observation Description Date Details (start date - stop date) Current Smoker NA - NA Tobacco Use/Smoking Question Answer Notes Patient is a current smoker How often do you smoke cigarettes? every day How many cigarettes a day do you smoke? 5 or les s How soon after you wake up d o you smoke your first cigarette? after 60 minutes Are you interested in quitting? Thinking about q uitting Additional Findings: Tobacco Non-User Fo rmer smoker, currently using no form of tobacco Alcohol Screen Question Answer Notes Did you have a drink contain ing alcohol in the past year? Yes How often did you have a dri nk containing alcohol in the past year? 4 or more times a week (4 points) How many drinks did you have on a typical day when you were drinking in the past year? 3 or 4 drinks (1 point) How often did you have 6 or more drinks on one occasion in the past year? Never (0 point) Points 5 Interpretation Positive Problems Problem Type SNOMED Code ICD Code Onset Dates Problem Status W/U Status Risk Notes Problem 946027815 Atherosclerosis of abdominal aorta (I70.0) Active confirmed Problem 42040249 Essential hypert ension (I10) Active confirmed Problem 92061530 Smoker unmotivat ed to quit (F17.210) Active confirmed Problem 6306764 Prediabetes (R73.09) Active confirmed Problem 336516923 Seborrheic kerat osis (L82.1) Active confirmed Problem 98812515 Atrial fibrillat ion, unspecified type (I48.91) Active confirmed Problem 89357510 Atherosclerosis (I70.90) Active confirmed Problem 149151606 Pure hypercholesterolemia (E78.00) Active confirmed Problem 138615867 Elevated PSA (R97.20) Active confirme d Problem 884081638987276 Vision loss, stevan ateral (H54.3) Active confirmed Vital Signs Blood pressure diastolic 90 mm Hg 10/29/2023 amanda ght is up 6 pounds since 04-27-23 Height 73 in 10/29/2023 weight is up 6 pounds since 04-27-23 Blood pressure systolic 174 mm Hg 10/29/2023 weig ht is up 6 pounds since 04-27-23 Weight 208 lbs 10/29/2023 weight is up 6 pounds since 04-27-23 BMI 27.44 kg/m2 10/29/2023 weight is up 6 pounds since 04-27-23 Encounters Encounter Location Date Provider Diagnosis Berto Jessica MD [address] [place] [address] [phone] 10/26/2023 Berto Jessica Prediabetes R73.09 a nd Pure hypercholesterolemia E78.00 Berto Jessica MD [address] [place] [phone] 04/22/2024 Berto eJssica Blood tests for rout ine general physical examination Z00.00 ; Prediabetes R73.09 ; Pure hypercholesterolemia E78.00 ; Elevated PSA R97.20 and Essential hypertension I10 Berto Jessica MD [address] [place] [phone] 04/27/2023 Berto Jessica Pure hypercholestero lemia E78.00 ; Annual physical exam Z00.00 ; Essential hypertension I10 ; Elevated PSA R97.20 ; Colon cancer screening Z12.11 ; Depression screening Z13.31 ; Prediabetes R73.09 and Atrial fibrillation, unspecified type I48.91 Berto Jessica MD [address] [place] [phone] 10/29/2023 Berto Jessica Atrial fibrillation, unspecified type I48.91 ; Pure hypercholesterolemia E78.00 ; Elevated PSA R97.20 ; Smoker unmotivated to quit F17.210 and Essential hypertension I10 Berto Jessica MD [address] [place] [phone] 04/19/2024 Berto Jessica Pure hypercholestero lemia E78.00 and Atrial fibrillation, unspecified type I48.91 Assessments Encounter Date Diagnosis (ICD Code) Assessment Notes Treatment Notes Treatment Clinical Notes Section Notes 10/26/2023 Prediabetes (ICD-10 - R73.09) 10/26/2023 Pure hypercholesterolemia (ICD-10 - E78.00) 04/22/[address] ine general physical examination (ICD-10 - Z00.00) 04/27/2023 Pure hypercholesterolemia (ICD-10 - E78.00) good ldl on meds, will continiue current regiment 04/27/2023 Annual physical exam (ICD-10 - Z00.00) labs reviewed anddiscussed with patient 10/29/2023 Atrial fibrillation, unspecified type (ICD-10 - I48.91) stable for many years, will continue current regiment 10/29/2023 Pure hypercholesterolemia (ICD-10 - E78.00) well controlled, will continue current regiment 04/19/2024 Pure hypercholesterolemia (ICD-10 - E78.00) 04/22/2024 Prediabetes (ICD-10 - R73.09) 04/27/2023 Essential hypertensi on (ICD-10 - I10) doing well, will continue current regiment 10/29/2023 Elevated PSA (ICD-10 - R97.20) followed by urology 04/19/2024 Atrial fibrillation, unspecified type (ICD-10 - I48.91) 04/22/2024 Pure hypercholesterolemia (ICD-10 - E78.00) 04/27/2023 Elevated PSA (ICD-10 - R97.20) down a little from last year. followed by urology 10/29/2023 Smoker unmotivated t o quit (ICD-10 - F17.210) 04/22/2024 Elevated PSA (ICD-10 - R97.20) 04/27/2023 Colon cancer screeni ng (ICD-10 - Z12.11) no stool, sent home with stool cards, to return to office once completed 10/29/2023 Essential hypertensi on (ICD-10 - I10) stable, will continue current regiment 04/22/2024 Essential hypertensi on (ICD-10 - I10) 04/27/2023 Depression screening (ICD-10 - Z13.31) negative screen 04/27/2023 Prediabetes (ICD-10 - R73.09) stable, no need for medication at this time 04/27/2023 Atrial fibrillation, unspecified type (ICD-10 - I48.91) stabe, will cntinue current regiment Plan Of Treatment Pending Test Test Name Order Date cologuard 04/11/2021 Electrocardiogram (EKG) 09/17/2018 Electrocardiogram (EKG) 07/19/2015 Electrocardiogram (EKG) 08/15/2016 Electrocardiogram (EKG) 09/04/2017 CT ABD & PELVIS WWO CONTRAST 10/18/2020 Complete Blood Count Auto Diff Lipid Panel 04/22/2024 PSA,Total (Free>4and<10) 04/22/2024 Microalbumin, Random 04/22/2024 CT abdomen pelvis w con 10/19/2020 Hemoglobin A1c 04/22/2024 UA ClnCatch+Micro w/rflx Cult 04/22/2024 Next Appt Details Provider Name:Berto Philip Portillo ier, 04/29/2024 08:00:00 AM, [address], [address], [place], [place], [phone], Insurance Providers Payer Name Payer Address Payer Phone Subscriber Number Group Number Insured Name Patient Relationship to Insured Coverage Start Date Coverage End Date [employer] [address] [place], [place] [phone] [id number] Nader Beauchamp Self - patient is the insured MEDICARE [facility] [place] [address] [place] [phone] [id number] Yovani edgar Nader Self - patient is the insured Medical (General) History Medical History History ICD Code discussed colonoscopy refuses colonoscop y 2018 discussed colonoscopy 2023 prostate biopsy 2008-dylon buckley score 0 2018
--- OUTSIDE RECORDS SUMMARY | 2024-04-22 12:48 | XMS_ITS ---
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 Role Phone Berto Jessica Primary Care Provider [phone] Results Component Value Reference Range Notes Complete Blood Count Auto Di ff (Not yet reviewed by provider) Interpretation: Performing Lab:[facility], [address] [place] [phone] Notes/Report: White Blood Count 8.1 4.8-10.8 X10*3/uL [...] yet reviewe d by provider) Interpretation: Performing Lab:[facility], [address] [phone] Notes/Report: Triglycerides 95 <150 mg/dL Desirable Triglyceride: [...] t yet reviewed by provider) Interpretation: Performing Lab:[facility], [address] [place] [phone] Notes/Report: PSA,Total (Free>4and<10) 5.87 0.00-4.00 ng/mL PSA methodology: De La Garza Alinity i Chemiluminescent Microparticle Immunoassay (CMIA) Microalbumin, Random (Not y et reviewed by provider) Interpretation: Performing Lab:[facility], [address] [place] [phone] Notes/Report: Creatinine Urine 71.17 Microalbumin Urine 23.0 Microalbum/Creatinine Ratio Ur 32.3 <30 ug/mg cr Albumin/Creatinine Ratio Reference Ranges: Normal: < 30 ug/mg creatinine Microalbuminuria: 30 - 300 ug/mg creatinine Clinical Albuminuria: > 300 ug/mg creatinine Hemoglobin A1c (Not yet revi ewed by provider) Interpretation: Performing Lab:[address] [phone] Notes/Report: Hemoglobin A1c % 5.8 <6.0 % [...] average glucose, using the formula of the Z9R-Zvjslsr Average Glucose study (ADAG), Diabetes Care, Vol.31,#8, Oct. 2007 UA ClnCatch+Micro w/rflx Cul t (Not yet reviewed by provider) Interpretation: Performing Lab:[address] [phone] Notes/Report: Urine, Clean Catch Color Urine Yellow Appearance Urine Clear PH 5.5 5.0-9.0 Glucose Urine UA Negative Negative mg/dL Urine Blood Negative Negative Specific Steward - Urine 1.010 1.005-1.025 Urine Protein Negative Neg-Trace mg/dL Urine Ketones Negative Negative mg/dL Nitrite Urine Negative Negative Leukocyte Esterase Urine Negative Negative RBC Urine 0-2 0-2 /HPF WBC Urine 0-5 0-5 /HPF Squamous Epithelial Cell Urine 0-2 0-2 /HPF Bacteria Urine None Seen None Seen Hyaline Casts Urine 0-2 0-2 /LPF REASON FOR VISIT FASTING LABS Encounters Encounter Location Date Provider Diagnosis Berto Jessica MD [address] [place] [address] Drive [address] [place], [place] [phone] 04/22/2024 Berto Jessica Blood tests for rout ine general physical examination Z00.00 ; Prediabetes R73.09 ; Pure hypercholesterolemia E78.00 ; Elevated PSA R97.20 and Essential hypertension I10 Assessments Encounter Date Diagnosis (ICD Code) Assessment Notes Treatment Notes Treatment Clinical Notes Section Notes 04/22/2024 Blood tests for rout ine general physical examination (ICD-10 - Z00.00) 04/22/2024 Prediabetes (ICD-10 - R73.09) 04/22/2024 Pure hypercholesterolemia (ICD-10 - E78.00) 04/22/2024 Elevated PSA (ICD-10 - R97.20) 04/22/2024 Essential hypertensi on (ICD-10 - I10) Plan Of Treatment Pending Test Test Name Order Date Complete Blood Count Auto Diff Lipid Panel 04/22/2024 PSA,Total (Free>4and<10) 04/22/2024 Microalbumin, Random 04/22/2024 Hemoglobin A1c 04/22/2024 UA ClnCatch+Micro w/rflx Cult 04/22/2024 Next Appt Details Provider Name:Berto Portillo ier, 04/29/2024 08:00:00 AM, [address] [place] [address], [address], [place], [place], [phone], Progress Notes * Nader MATADOB:[birth year] (69 yo M)Acc No.[id number]:04/22/2024 Progress Note Patient:?Nader MATA Provider:?Berto Jessica MD :1955???Age:69 Y???Sex:Male Colin e:04/22/2024 Address:[facility] [address], [id number] Subjective: * Chief Complaints: * ???1. FASTING LABS. * Medical History:? Objective: * Vitals:? Assessment: * Assessment: 1.?Blood tests for routine g eneral physical examination - Z00.00 (Primary)???2.?Prediabetes - R73.09???3.?Pure hypercholesterolemia - E78.00???4.?Elevated PSA - R97.20???5.?Essential hypertension - I10??? Plan: * Treatment: 2.?Prediabetes?LAB: Complete Blood Count Auto Diff (Collection Date & Time - 04/22/2024 07:16 AM) ?LAB: Lipid Panel (Collection Date & Time - 04/22/2024 07:16 AM) ?LAB: PSA,Total (Free>4and<10) (Collection Date & Time - 04/22/2024 07:16 AM) ?LAB: Microalbumin, Random (Collection Date & Time - 04/22/2024 07:16 AM) ?LAB: Hemoglobin A1c (Collection Date & Time - 04/22/2024 07:16 AM) ?LAB: UA ClnCatch+Micro w/rflx Cult (Collection Date & Time 04/22/2024 07:16 AM) 3.?Pure hypercholesterolemia ?LAB: Complete Blood Count Auto Diff (Collection Date & Time - 04/22/2024 07:16 AM) ?LAB: Lipid Panel (Collection Date & Time 04/22/2024 07:16 AM) ?LAB: PSA,Total (Free>4and<10) (Collection Date & Time - 04/22/2024 07:16 AM) ?LAB: Microalbumin, Random (Collection Date & Time 04/22/2024 07:16 AM) ?LAB: Hemoglobin A1c (Collection Date & Time 04/22/2024 07:16 AM) ?LAB: UA ClnCatch+Micro w/rflx Cult (Collection Date & Time 04/22/2024 07:16 AM) 4.?Elevated PSA?LAB: Complete Blood Count Auto Diff (Collection Date & Time - 04/22/2024 07:16 AM) ?LAB: Lipid Panel (Collection Date & Time - 04/22/2024 07:16 AM) ?LAB: PSA,Total (Free>4and<10) (Collection Date & Time - 04/22/2024 07:16 AM) ?LAB: Microalbumin, Random (Collection Date & Time - 04/22/2024 07:16 AM) ?LAB: Hemoglobin A1c (Collection Date & Time - 04/22/2024 07:16 AM) ?LAB: UA ClnCatch+Micro w/rflx Cult (Collection Date & Time - 04/22/2024 07:16 AM) 5.?Essential hypertension?LAB: Complete Blood Count Auto Diff (Collection Date & Time - 04/22/2024 07:16 AM) ?LAB: Lipid Panel (Collection Date & Time - 04/22/2024 07:16 AM) ?LAB: PSA,Total (Free>4and<10) (Collection Date & Time - 04/22/2024 07:16 AM) ?LAB: Microalbumin, Random (Collection Date & Time - 04/22/2024 07:16 AM) ?LAB: Hemoglobin A1c (Collection Date & Time - 04/22/2024 07:16 AM) ?LAB: UA ClnCatch+Micro w/rflx Cult (Collection Date & Time - 04/22/2024 07:16 AM) * Procedure Codes:?23680 VENIP UNCT, ROUTINE* * * The named appointment provid er may or may not be the originator of this progress note, and it is not deemed complete until electronically signed by the appointment provider. Sign off status: Pending * Provider:?Berto Jessica MD Date:?0 04/22/2024 Generated for Maximino cantu/Venkat/eTransmitting on:?04/22/2024 12:48 PM EST
[2024-04-25 11:53] LABS: Free Prostate Spec Ag 1.1 ng/mL; Percent Free Prostate Spec Ag 18 % (calc) (>25); Prostate Specific Ag Total 6.2 ng/mL (< OR = 4.0)
== END 2024-04-22 10:52 | disposition home or self-care (01) ==
LOC: HO.LNP 10:51
PROVIDERS: Visit Provider Internal Medicine
DX: Z00.00 Encounter for general adult medical examination without abnormal findings (principal); R73.09 Other abnormal glucose; E78.00 Pure hypercholesterolemia, unspecified; R97.20 Elevated prostate specific antigen [PSA]; I10 Essential (primary) hypertension; Z12.5 Encounter for screening for malignant neoplasm of prostate
CPT/HCPCS: 80061; 81001; 82043; 82570; 83036; 84153; 84154; 85025

== ENCOUNTER 2024-04-29 10:47 | Outpatient (REF) | payer MEDICARE, SELFPAY ==
[2024-04-29 12:24] LABS: Alanine Aminotransferase 29 U/L (0-40); Albumin Level 4.2 g/dL (3.5-5.0); Alkaline Phosphatase 88 U/L (39-117); Anion Gap 13 (12-20); Aspartate Amino Transferase 30 U/L (5-37); Bilirubin Total 0.7 mg/dL (0.0-1.0); Blood Urea Nitrogen 10 mg/dL (9-16); Calcium 9.9 mg/dL (8.4-10.2); Carbon Dioxide 24 mmol/L (22-29); Chloride 102 mmol/L (96-108); Estimated Glomerular Filt Rate > 60; Glucose Fasting 110 mg/dL (60-99); Potassium 4.5 mmol/L (3.3-5.1); Sodium 134 mmol/L (135-145); Total Protein 7.7 g/dL (6.5-8.0)
== END 2024-04-29 10:48 | disposition home or self-care (01) ==
LOC: HO.LNP 10:47
PROVIDERS: Visit Provider Internal Medicine
DX: F17.210 Nicotine dependence, cigarettes, uncomplicated (principal)
CPT/HCPCS: 80053

== ENCOUNTER 2024-10-17 11:00 | Outpatient (REF) | payer MEDICARE, SELFPAY ==
--- OUTSIDE RECORDS SUMMARY | 2024-10-17 03:15 | XMS_ITS ---
Author Organization Berto Jessica MD Address [address] [place] [phone] Care Team Providers Care Color Receiver Name Role Phone Berto Jessica Primary Care Provider Results Component Value Reference Range Notes Hemoglobin A1c (Not yet revi ewed by provider) Interpretation: Performing Lab:[facility], [address] [place] [phone] Notes/Report: Hemoglobin A1c % 5.8 <6.0 % [...] average glucose, using the formula of the E8N-Ufxtymx Average Glucose study (ADAG), Diabetes Care, Vol.31,#8, Oct. 2007 REASON FOR VISIT FASTING LIPIDS Encounters Encounter Location Date Provider Diagnosis Berto Jessica MD [address] [place] [phone] 10/17/2024 Berto Jeromarthaherve Prediabetes R73.09 a nd Pure hypercholesterolemia E78.00 Assessments Encounter Date Diagnosis (ICD Code) Assessment Notes Treatment Notes Treatment Clinical Notes Section Notes 10/17/2024 Prediabetes (ICD-10 - R73.09) 10/17/2024 Pure hypercholesterolemia (ICD-10 - E78.00) Plan Of Treatment Pending Test Test Name Order Date Liver Panel 10/17/2024 Glucose Fasting 10/17/2024 Lipid Panel with Reflex 10/17/2024 Hemoglobin A1c 10/17/2024 Next Appt Details Provider Name:Berto Portillo ier, 10/24/2024 08:45:00 AM, [address], [address], [place], [place], [phone], Provider Name:Berto Portillo ier, 04/28/2025 07:00:00 AM, [address] [place] [address], [address], [place], [place], [phone], Provider Name:Berto Portillo ier, 05/05/2025 08:00:00 AM, [address] [place] [address] Drive, [address], [place], [place], [phone], Progress Notes * Nader MATADOB:[birth year] (69 yo M)Acc No.[id number]:10/17/2024 Progress Note Patient: Nader SCHULZ Provider: Sonia Jessica MD :1955 A ge:69 Y S ex:Male Date:10/17/2024 Address:[address] [place] [address] [place], [phone] Subjective: * Chief Complaints: * 1 . FASTING LIPIDS. * Medical History: Objective: * Vitals: Assessment: * Assessment: 1. P rediabetes - R73.09 (Primary) 2 . P ure hypercholesterolemia - E78.00? Plan: * Treatment: 2. P ure hypercholesterolemia L AB: Liver Panel L AB: Glucose Fasting L AB: Lipid Panel with Reflex L AB: Hemoglobin A1c (Collection Date & Time - 10/17/2024 07:15 AM) * Procedure Codes: 3 6415 VENIPUNCT, ROUTINE* * * The named appointment provid er may or may not be the originator of this progress note, and it is not deemed complete until electronically signed by the appointment provider. Sign off status: Pending * Provider: Sonia Jessica MD Date: 10/17/2024 Generated for Maximino cantu/Venkat/Noemiitting on: 10/17/2024 12:10 PM EDT
[2024-10-17 11:25] LABS: Hemoglobin A1C 154.5450 umol/L; Total Hemoglobin (HGBA1C) 3904.3027 umol/L
[2024-10-17 11:39] LABS: Alanine Aminotransferase 26 U/L (0-40); Albumin Level 4.3 g/dL (3.5-5.0); Alkaline Phosphatase 94 U/L (39-117); Aspartate Amino Transferase 34 U/L (5-37); Cholesterol 126 mg/dL (<200); HDL Cholesterol 60 mg/dL (>40); Total Protein 7.5 g/dL (6.5-8.0); Triglycerides 75 mg/dL (<150)
[2024-10-17 13:54] LABS: Reflex LDLD? No
== END 2024-10-17 11:01 | disposition home or self-care (01) ==
LOC: HO.LNP 11:00
PROVIDERS: Visit Provider Internal Medicine
DX: R73.09 Other abnormal glucose (principal); E78.00 Pure hypercholesterolemia, unspecified
CPT/HCPCS: 80061; 80076; 82947; 83036